=== PATIENT | female | born 1975 | race Caucasian/White ===

== ENCOUNTER 2024-02-03 08:59 | Outpatient (AMB) | payer BC, SELFPAY ==
--- NOTE | 2024-02-03 09:12 | MHC.PC.OV ---
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 A1c in normal range. Had gained some weight back now losing some again GERD: Was able to come off nightly Pepcid. Does not tolerate PPI. Anxiety: Previously intolerant of SSRI-she believes this was Paxil. 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 HEENT: Denies changes in vision and hearing. RESPIRATORY: Denies SOB and cough. CV: Denies palpitations and CP GI: Denies abdominal pain, nausea, vomiting and diarrhea. : Denies dysuria and urinary frequency. MSK: Denies new myalgia and joint pain. SKIN: Denies rash and pruritus. NEUROLOGICAL: Denies headache PSYCHIATRIC: Denies recent changes in mood. PHYSICAL EXAM: GENERAL: Alert and oriented x 3. NAD EYES: EOMI. Anicteric. HENT: Moist mucous membranes. No scleral icterus. No cervical lymphadenopathy. LUNGS: Clear to auscultation bilaterally. CARDIOVASCULAR: Regular rate and rhythm. No murmur. No JVD. ABDOMEN: Soft, non-tender +bs EXTREMITIES: No edema. Non-tender. SKIN: No rashes or lesions. Warm. NEUROLOGIC: No focal neurological deficits. CN II-XII grossly intact PSYCHIATRIC: Cooperative. Appropriate mood and affect [facility] Medical History (Updated 02/03/24 @ 10:56 by Freda Cordero MD) Vesicoureteral reflux UTI (urinary tract infection) Severe obesity Multiple developmental ovarian cysts Impaired glucose tolerance Heartburn Gallstones Female pelvic pain Environmental allergies Elevated glucose Contact dermatitis Anxiety Abnormal CBC Surgical History (Updated 02/03/24 @ 09:36 by Rula Vasquez CMA) H/O section Hx of colonoscopy Family History (Updated 02/03/24 @ 09:40 by Rula Vasquez CMA) Mother HTN (hypertension) Maternal Grandmother Dementia Social History Housing: House Patient Tobacco Use Status: Former Tobacco user Cigarette Packs Per Day: 1 Years Smoked: 10 e-Cigarette/Vaping Use: Never Used Second Hand Smoke Exposure: No service: Yes Current occupational status: employed 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 1. Little interest or pleasure in doing things: not at all 2. Feeling down, depressed, or hopeless: not at all 3. Trouble falling or staying asleep, or sleeping too much: several days 4. Feeling tired or having little energy: several days 5. Poor appetite or overeating: not at all 6. Feeling bad about yourself - or that you are a failure or have let yourself or your family down: not at all 7. Trouble concentrating on things, such as reading the newspaper or watching television: not at all 8. Moving or speaking so slowly that other people could have noticed. Or the opposite - being so fidgety or restless that you have been moving around a lot more than usual: not at all 9. Thoughts that you would be better off or of hurting yourself in some way: not at all Total score: 2 Depression Screening Interpretation: Negative Depression Screening Done: Yes 84715 - PHQ-9 Billing: Yes Source: Developed by Drs. Robin Chandra, Avril Zayas, Rodrigo Escobedo and colleagues, with an educational don from [employer]. Thrive Questionnaire Date Thrive assessed: 01/27/24 I am a: Patient What is your living situation today?: I have a steady place to live Within the past 12 months, did the food you bought not last and you didn't have the money to get more?: Never true Within the past 12 months, did you worry whether your food would run out before you got money to buy more?: Sometimes True Do you have trouble paying for medicines?: No Do you have trouble getting transportation to medical appointments?: No Do you have trouble paying your heating and electricity bill?: Yes Do you have trouble taking care of your child, family member or friend?: No Do you have trouble with day-to-day activities such as bathing, preparing meals, shopping, managing finances, etc.?: No Are you currently unemployed and looking for a job?: No Are you interested in more education?: No Please select the resources that you would like help with: None Currently or been in a relationship where the following occur: I choose not to answer THRIVE Score: 2 AUDIT C Alcohol Use Questionnaire (AUDIT-C) 1. How often do you have a drink containing alcohol?: Never 3. How often do you have six or more drinks on one occasion?: Never Total Score: 0 MICHELLE-7 AMB Questionnaire MICHELLE-7 Date MICHELLE - 7 assessed: 02/03/24 Source: Developed by Drs. Robin Chandra, Avril Zayas, Rodrigo Escobedo and colleagues, with an educational dno from [employer]. Physical exam (Primary Care) Vital Signs: Last Vital Signs Temp 99 F 02/03/24 09:31 Pulse 80 02/03/24 09:31 Resp 14 02/03/24 09:31 BP 128/80 02/03/24 09:31 Pulse Ox 98 02/03/24 09:31 Oxygen Delivery Method Room Air 02/03/24 09:31 BMI result Body Mass Index 44.7 Tobacco/Smoking Status: Tobacco use Status Tobacco use date assessed 02/03/24 02/03/24 09:14 Patient Tobacco Use Status Former Tobacco user 02/03/24 09:20 e-Cigarette/Vaping Use Never Used 02/03/24 09:14 PHQ-9: PHQ-9 Score PHQ-9: Total score 2 02/03/24 09:32 Depression Screening Interpretation: Negative Thrive Assessment: Date of Thrive Assessment Date Thrive assessed 09/24/24 10/01/24 09:14 Currently or been in a relationship where the following occur: I choose not to answer Coding Level of Care Code Tele Est Pt Level 5 (41385) Diagnoses Bilateral carpal tunnel syndrome G56.03 Laterality: bilateral Impaired glucose tolerance R73.02 Severe obesity E66.01 Iliotibial band syndrome of left side M76.32 Laterality: left Time Spent (min) 43 Assessment & Plan Assessment & Plan (1) Carpal tunnel syndrome: Code(s): G56.00 - Carpal tunnel syndrome, unspecified upper limb Category: Medical Qualifiers: Laterality: bilateral Qualified Code(s): G56.03 - Carpal tunnel syndrome, bilateral upper limbs Plan: Referral placed to physiatry (2) Impaired glucose tolerance: Code(s): R73.02 - Impaired glucose tolerance (oral) Category: Medical Plan: continue metformin. Monitor labs (3) Severe obesity: Code(s): E66.01 - Morbid (severe) obesity due to excess calories Category: Medical Plan: continues metformin. Efforts toward weight loss (4) Iliotibial band syndrome: Code(s): M76.30 - Iliotibial band syndrome, unspecified leg Category: Medical Qualifiers: Laterality: left Qualified Code(s): M76.32 - Iliotibial band syndrome, left leg Plan: Prednisone sent Orders: Orders Comprehensive Met. Panel Today G56.00 - Carpal tunnel syndrome, unspecified upper limb, R12 - Heartburn, R73.02 - Impaired glucose tolerance (oral) Lipid Panel Today G56.00 - Carpal tunnel syndrome, unspecified upper limb, R12 - Heartburn, R73.02 - Impaired glucose tolerance (oral) Hemoglobin A1c Today G56.00 - Carpal tunnel syndrome, unspecified upper limb, R12 - Heartburn, R73.02 - Impaired glucose tolerance (oral) Complete Blood Count Auto Diff Today G56.00 - Carpal tunnel syndrome, unspecified upper limb, R12 - Heartburn, R73.02 - Impaired glucose tolerance (oral) Referrals Physiatry Referral G56.00 - Carpal tunnel syndrome, unspecified upper limb Medications: New metformin ER 500 mg PO DAILY 90 tabs 3RF ciclopirox 8% (Ciclodan) 1 appl topical BEDTIME 4 weeks 6.6 mL 3RF prednisone 40 mg (2 x 20 mg) PO DAILY 5 days 10 tabs 0RF
[2024-02-03 09:31] VITALS: BP 128/80; PULSE 80; RESP 14; TEMP 37.2; O2SAT 98; BMI 44.7
== END 2024-02-03 10:04 | disposition home or self-care (01) ==
PROVIDERS: PCP Internal Medicine; Visit Provider Internal Medicine
DX: G56.03 Carpal tunnel syndrome, bilateral upper limbs (principal); E66.813 Obesity, class 3; Z68.41 Body mass index [BMI] 40.0-44.9, adult; R73.02 Impaired glucose tolerance (oral); M76.32 Iliotibial band syndrome, left leg

== ENCOUNTER 2024-02-03 10:29 | Outpatient (REF) | payer BC, SELFPAY ==
[2024-02-03 14:21] LABS: MANUAL DIFF FLAG NO
[2024-02-03 14:33] LABS: Basophils Percent Auto 0.6 % (0-2); Eosinophils Absolute Auto 0.3 X10*3/uL (0.0-0.4); Eosinophils Percent Auto 3.6 % (0-4); Hematocrit 39.3 % (37.0-47.0); Hemoglobin 13.5 g/dl (12.0-16.0); Imm Gran Abs Auto 0.02 X10*3/uL (0.00-0.03); Imm Gran Pct Auto 0.3 % (0.0-0.4); Lymphocytes Absolute Auto 1.3 X10*3/uL (1.2-4.9); Lymphocytes Percent Auto 17.9 % (20-40); Mean Corpuscular HGB Conc 34.4 g/dl (31.0-35.0); Mean Corpuscular Hemoglobin 30.8 pg (27.0-33.0); Mean Corpuscular Volume 89.5 fL (80.0-98.0); Mean Platelet Volume 11.7 fL (9.4-12.3); Monocytes Absolute Auto 0.3 X10*3/uL (0.1-1.2); Monocytes Percent Auto 3.8 % (2-11); Neutrophils Absolute Auto 5.3 x10*3/uL (2.0-8.3); Neutrophils Percent Auto 73.8 % (45-73); Platelet Count 279 X10*3/uL (160-400); Red Blood Count 4.39 X10*6/uL (4.20-5.50); Red Cell Distribution Width 12.9 % (11.0-16.0); White Blood Count 7.2 X10*3/uL (4.8-10.8)
[2024-02-03 14:39] LABS: Estimated Average Glucose 111 mg/dL; Hemoglobin A1C 125.3163 umol/L; Hemoglobin A1c % 5.5 % (<6.0); Total Hemoglobin (HGBA1C) 3396.4731 umol/L
[2024-02-03 14:40] LABS: Alanine Aminotransferase 14 U/L (0-31); Albumin Level 4.2 g/dL (3.5-5.0); Alkaline Phosphatase 82 U/L (39-117); Anion Gap 13 (12-20); Aspartate Amino Transferase 14 U/L (5-31); Bilirubin Total 0.4 mg/dL (0.0-1.0); Blood Urea Nitrogen 9 mg/dL (9-16); Calcium 10.3 mg/dL (8.4-10.2); Carbon Dioxide 25 mmol/L (22-29); Chloride 105 mmol/L (96-108); Cholesterol 183 mg/dL (<200); Estimated Glomerular Filt Rate > 60; Glucose Random 103 mg/dL (60-115); HDL Cholesterol 59 mg/dL (>40); LDL Cholesterol Calculated 97 mg/dL (<100); Potassium 4.2 mmol/L (3.3-5.1); Sodium 139 mmol/L (135-145); Total Protein 7.5 g/dL (6.5-8.0); Triglycerides 136 mg/dL (<150)
== END 2024-02-03 10:30 | disposition home or self-care (01) ==
LOC: HO.WFDLDS 10:29
PROVIDERS: Visit Provider Internal Medicine
DX: R73.02 Impaired glucose tolerance (oral) (principal); R12 Heartburn; G56.00 Carpal tunnel syndrome, unspecified upper limb
CPT/HCPCS: 36415; 80053; 80061; 83036; 85025

== ENCOUNTER 2024-05-10 09:51 | Outpatient (RCR) | payer BC, SELFPAY ==
--- NOTE | 2024-03-03 16:07 | MHC.PT.EP ---
[facility] [place] Office [place] Office [place] Office [address] Jimy Whitehead [address] [phone] F: [phone] F: [phone] F: [phone] F: [phone] Physical Therapy Plan of Care Date of Evaluation: 03/03/24 Date of Surgery: NA Diagnosis: ILLIOTIBIAL BAND SYNDROME Assessment: Pt IS 49 YO F REFERRED TO PT FROM [facility] WITH ITB SYNDROME L. Pt REPORTS PAIN L HIP BEGAN DURING SEX (HYPER ER AT HIPS) WITH PROGRESSION INTO L LAT THIGH PAIN AND L KNEE PAIN. NOW HAS DIFFICULTY PUTTING L SOCK ON (DIFF ER). PRESENTS WITH PAIN L HIP/LAT KNEE WITH LIMITED HIP ROM (AROM L HIP ER..COMPLETE ROM MEASURES L HIP NEXT SESSION). L GLUT (PIRIFORMIS) TIGHTNESS, ITB TTP AND TIGHTNESS. SHOULD BENEFIT FROM PT TO ADDRESS THESE ISSUES OF NOTE, MAY HAVE PATELLA LAT TILT BASED ON PAIN L LAT PAT (ED TO BRING SHORTS NEXT SESSION) Frequency and Duration: The patient will be seen 2X/WK X 2 WKS, THEN 1X/WK X 2-4 WKS Short Term Goals: 1. INCREASED AWARENESS HIP CARE/POSTURE 2. Pt ABLE TO LUIS SOCK/SHOE L Assisted Goals: 1. L HIP STRENGTH 5/5 T/O 2. ROM WNLS L HIP 3. DECREASED PAIN L HIP AT LEAST 50% WITH ADLS 4. I HEP WITH DC EX PLAN Treatment Plan: Modalities to reduce pain, spasms and effusion. Manual therapy to restore motion and function. Therapeutic exercise to improve strength and flexibility. Neuromuscular re-education for posture and balance. Therapeutic activities to return to functional activities of daily living. Electronically signed by: HENRRY RENTERIA PT Please sign and return to therapist. Thank you for your referral.
== END 2024-06-01 11:45 | disposition home or self-care (01) ==
LOC: HO.PTWFD 09:51
PROVIDERS: PCP Internal Medicine; Visit Provider Internal Medicine
DX: M76.32 Iliotibial band syndrome, left leg (principal)
CPT/HCPCS: 97110; 97140; 97162; 97530; 97535